=== PATIENT | female | born 1945 | race Caucasian/White ===

== ENCOUNTER → 2016-10-21 | Outpatient (CLI) | payer OTHER ==
[~2016-10-21] MED LIST: ATIVAN0.5 MG PO; CALCIUM 500 MG1 EACH PO; CALCIUM AND MA1 EACH PO; CARAFATE 1 GM TA1 G1 PO; CATAPRES-TTS 10.1 MG TOP; CELEBREX 200 M200 M1 PO; CLONIDINE0.1 PO; COLACE100 MG PO; COUMADIN 2 MG TA2 M1 PO; CYMBALTA60 MG PO; DOLOPHINE HCL10 MG PO; ENDOCET 10-3251 EACH PO; ENOXAPARIN60 MG/0.1 SUBQ; ENOXAPARIN60 MG/0.6 SQ; ERYTHROMYCIN250 MG PO; FENTANYL PATCH75 MCG TP; FIBERCON625 M1 PO; FIBERCON625 MG PO; FISH OIL 1,001000 M1 PO; FORTEO PEN750 MCG/3 SC; HYDROCODON-ACE1 EAC5 PO; HYDROCODONE-AP1 EAC6 PO; K-DUR 20 MEQ T20 MEQ PO; KLOR-CON20 MEQ PO; LASIX 40 MG TAB40 M1 PO; METHADONE HCL 110 M1 PO; METHADONE HCL5 MG PO; MILLIPRED DP5 M1; MULTIVITAMINS1 EAC7 PO; NEURONTIN 300300 M1 PO; NEURONTIN 300300 MG PO; NEURONTIN600 MG PO; NEXIUM40 MG PO; NORCO 10-325 T1 EACH PO; NORCO 5-325 TA1 EACH PO; NORVASC 2.5 MG2.5 M1 PO; NORVASC2.5 MG PO; ONDANSETRON HCL4 M2 PO; OXYCODONE-ACET1 EAC2 PO; OXYCONTIN30 MG PO; PERCOCET 10-321 EACH PO; PRAVASTATIN SOD20 MG PO; PRAVASTATIN SOD40 MG PO; PRILOSEC 20 MG20 MG PO; PRILOSEC40 MG PO; PROZAC 20 MG20 M1 PO; PROZAC20 MG PO; REGLAN 10 MG TA10 MG PO; SALAGEN7.5 MG PO; VITAMIN D1000 UNI1 PO; ZOFRAN ODT4 MG PO
== END ==
LOC: RAD 11:10
DX: Z12.31 Encounter for screening mammogram for malignant neoplasm of breast (principal)